=== PATIENT | male | born 1985 | race Caucasian/White ===

== ENCOUNTER 2025-03-08 13:50 | Outpatient (CLI) | payer BC, SELFPAY ==
--- NOTE | ~2025-03-08 | MR_ITS ---
EXAMINATION: MR shoulder RT wo con DATE: 03/08/2025 14:24 INDICATION: Right shoulder pain and limited range of motion TECHNIQUE: Magnetic resonance imaging (MRI) of the right shoulder was performed without intravenous c ontrast. Sequences included axial PD-weighted FS FSE, coronal oblique PD-weighted FS FSE, coronal obl ique T2-weighted FS FSE, sagittal PD-weighted FS FSE, and sagittal T1-weighted SE. COMPARISON: None. FINDINGS: Coracoacromial arch: The acromion undersurface is curved in morphology (type II). The coracoacromial ligament is normal. M oderate acromioclavicular osteoarthritis. Rotator cuff: The supraspinatus, infraspinatus and teres minor tendons are normal. There is moderate tendinopathy w ithout discrete tear at the cephalad third of the subscapularis tendon. Normal rotator cuff muscle bu lk and signal. Biceps tendon, glenoid labrum and glenohumeral cartilage: Long head of the biceps tendon is normal. There is a tear of the 12:00-10:00 position of the posterio r superior glenoid labrum. Glenohumeral cartilage is normal. Fluid: Physiologic amount of fluid in the glenohumeral joint and biceps tendon sheath. No loose osteochondr al bodies. Normal abnormal fluid signal in the subacromial/subdeltoid bursa to suggest bursitis. Bones: Bone alignment is normal. No fracture or pathologic marrow replacing process. There is increased soft tissue at the rotator cuff interval replacing the normal fat signal which could be seen in setting o f adhesive capsulitis which is a clinical diagnosis. There is however no significant thickening of th e joint capsule at the axillary recess which is another typical finding of adhesive capsulitis. IMPRESSION: 1. Moderate subscapularis tendinopathy without discrete tear. 2. Tear of the posterior superior glenoid labrum. 3. Moderate acromioclavicular osteoarthritis. 4. Increased soft tissue at the rotator cuff interval which can be seen in the setting of adhesive ca psulitis there is however no abnormal thickening of the capsule at the axillary recess which is anoth er typical finding of adhesive capsulitis. Ultimately however this is a clinical diagnosis. Reviewed, dictated and finalized at location A. IMPRESSION: 1. Moderate subscapularis tendinopathy without discrete tear. 2. Tear of the posterior superior glenoid labrum. 3. Moderate acromioclavicular osteoarthritis. 4. Increased soft tissue at the rotator cuff interval which can be seen in the setting of adhesive capsulitis there is however no abnormal thickening of the c apsule at the axillary recess which is another typical finding of adhesive caps ulitis. Ultimately however this is a clinical diagnosis.
== END 2025-03-08 13:51 | disposition home or self-care (01) ==
LOC: MICIMG 13:51
PROVIDERS: PCP Family Medicine Sports Medicine; Visit Provider Family Medicine Sports Medicine
DX: M19.011 Primary osteoarthritis, right shoulder (principal); M75.101 Unspecified rotator cuff tear or rupture of right shoulder, not specified as traumatic
CPT/HCPCS: 73221